=== PATIENT | female | born 1970 | race American Indian/Alaskan Native ===

== ENCOUNTER 2021-10-31 09:27 | Emergency (ER) | payer OTHER, MEDICARE ==
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
[2021-10-31 12:09] VITALS: BP 133/90
== END 2021-10-31 12:06 | disposition home or self-care (01) ==
LOC: ED 09:27
DX: M54.2 Cervicalgia (principal); M25.512 Pain in left shoulder; Z88.6 Allergy status to analgesic agent; Z88.5 Allergy status to narcotic agent; Z88.2 Allergy status to sulfonamides; V89.2XXA Person injured in unspecified motor-vehicle accident, traffic, initial encounter; Y93.89 Activity, other specified; Y92.89 Other specified places as the place of occurrence of the external cause; Y99.8 Other external cause status
CPT/HCPCS: 99282